=== PATIENT | female | born 1955 | race Caucasian/White ===

== ENCOUNTER → 2016-06-25 | Outpatient (CLI) | payer BC ==
[~2016-06-25] VITALS: Ht 175.3 cm; Wt 72.6 kg
[~2016-06-25] MED LIST: CALC0.009 TOP; CALC500T36 PO; HYDROCODONE; LIDOCAINE 2% INJ 100 MG/5 ML SDV (FOR ANES.) As Ordered ONE; METHOTREXATE; MULTLIQ7; NS 1,000 ML IV SCH; POTA10TAB PO; PROPOFOL 200 MG/20 ML VIAL As Ordered ONE; THERGRAN; ULTR0.0510 TOP; VITA-115 PO
--- NOTE | 2016-06-25 09:44 | ROOR ---
Patient Name: Nellie Mcneil Procedure Date: 06/25/2016 9:21 AM Date of : 1955 Age: 61 Room: [facility] Gender: Female Note Status: Finalized Procedure: Colonoscopy to Cecum + Cold Snare Polypectomy Indications: Screening for colorectal malignant neoplasm, Last colonoscopy: 2005 Providers: Tyree Pratt MD Referring MD: Radha COHEN MD Requesting Provider: Medicines: Monitored Anesthesia Care Complications: No immediate complications. Procedure: Pre-Anesthesia Assessment: - The heart rate, respiratory rate, oxygen saturations, blood pressure, adequacy of pulmonary ventilation, and response to care were monitored throughout the procedure. The Colonoscope was introduced through the anus and advanced to the cecum, identified by appendiceal orifice and ileocecal valve. The colonoscopy was performed without difficulty. The patient tolerated the procedure well. The quality of the bowel preparation was excellent. Findings: The perianal and digital rectal examinations were normal. Non-bleeding internal hemorrhoids were found during retroflexion. The hemorrhoids were small and Grade I (internal hemorrhoids that do not prolapse). A small polyp was found in the mid ascending colon. The polyp was sessile. The polyp was removed with a cold snare. Resection and retrieval were complete. The exam was otherwise without abnormality on direct and retroflexion views. Impression: - Non-bleeding internal hemorrhoids. - One small polyp in the mid ascending colon, removed with a cold snare. Resected and retrieved. - The examination was otherwise normal on direct and retroflexion views. - The exam was otherwise normal to the cecum. Recommendation: - Patient has a contact number available for emergencies. The signs and symptoms of potential delayed complications were discussed with the patient. Return to normal activities tomorrow. Written discharge instructions were provided to the patient. - High fiber diet. - Discharge patient to home. - Continue present medications. - Await pathology results. - Check Portal Online for Path [email or web address] - Return to referring physician. - Repeat colonoscopy for surveillance based on pathology results. - The findings and recommendations were discussed with the patient's family. Tyree Pratt MD Tyree Pratt MD 06/25/2016 9:44:23 AM This report has been signed electronically. Number of Addenda: 0 Note Initiated On: 06/25/2016 9:21 AM Estimated Blood Loss: Estimated blood loss: none.
[2016-06-25 10:10] VITALS: BP 98/55
== END ==
LOC: M OPP 08:17
PROVIDERS: ATTEND Internal Medicine Gastroenterology
DX: Z12.31 Encounter for screening mammogram for malignant neoplasm of breast (principal); K64.0 First degree hemorrhoids; K63.5 Polyp of colon; L40.9 Psoriasis, unspecified; Z79.899 Other long term (current) drug therapy; Z88.0 Allergy status to penicillin

== ENCOUNTER → 2018-01-03 | Outpatient (REF) | payer BC ==
[2018-01-03 15:49] LABS: FREE T4 1.32 NG/DL (0.76-1.46); THYROID STIMULATING HORMONE 0.164 uIU/ML (0.358-3.740)
== END ==
LOC: M LABDRAW1 12:15
DX: E89.0 Postprocedural hypothyroidism (principal)